=== PATIENT | female | born 1995 | race Caucasian/White ===

== ENCOUNTER 2020-02-24 02:43 | Emergency (ER) | payer BC ==
[2020-02-24 03:13] LABS: Bilirubin Negative (Negative); Blood, Urine Large (Negative); Clarity Slightly Cloudy (Clear); Glucose, Urine (Dipstick) Negative (Negative); Ketone, Urine Negative (Negative); Leukocyte Negative (Negative); Nitrite Negative (Negative); Protein, Urine (Dipstick) Negative (Neg-Trace); Urobilinogen 0.2 mg/dL (Less than 2); pH, Urine 5.5 (5.0-9.0)
[2020-02-24 03:16] LABS: Specific Gravity, Urine Greater/Equal 1.030 (1.005-1.030)
[2020-02-24 03:19] LABS: Bacteria/HPF Rare-Few HPF (None Seen); RBC/HPF Greater than 50 HPF (0-3); WBC/HPF None Seen HPF (0-3)
[2020-02-24] MEDS ORDERED: Morphine 4 MG/ML VIAL ONE ×2 (03:30→03:55)
[2020-02-24] MEDS ORDERED: Ondansetron PF 4 MG/2 ML Vial ONE ×2 (03:31→03:55)
[2020-02-24] MEDS ORDERED: Sodium Chloride 0.9% 1,000 ML ONE (03:31)
[2020-02-24 03:34] LABS: #Basophils 0.1 thou/uL (0.0-0.2); #Eosinphils 0.1 thou/uL (0.0-0.7); #Lymphocytes 3.2 thou/uL (1.20-3.40); #Monocytes 0.6 thou/uL (0.11-0.59); #Neutrophils 5.1 thou/uL (1.40-6.50); %Basophils 1.1 % (0.0-1.0); %Eosinophils 1.2 % (0.0-10.0); %Lymphocytes 35.3 % (21.0-51.0); %Monocytes 6.5 % (0.0-10.0); %Neutrophils 55.9 % (42.0-75.0); Hemoglobin 13.8 g/dL (12.0-16.0); Mean Corpuscular HGB CONC 32.3 g/dL (32.0-36.0); Mean Corpuscular Hemoglobin 29.2 pg (27.0-31.0); Mean Corpuscular Volume 90.3 fL (78.0-98.0); Platelet Count 344 thou/uL (130-400); RBC Distribution Width 10.9 % (11.5-14.5); Red Blood Cell (RBC) Count 4.74 mill/uL (4.20-5.40); White Blood Cell (WBC) Count 9.2 thou/uL (4.8-10.8)
[2020-02-24 03:43] LABS: BHCG - Serum Negative (NEGATIVE); Pregs Control Background? CLEAR/WHITE (CLR/WHITE); Pregs Control Bar Appear? YES (CONTROL BAR)
[2020-02-24 03:45] LABS: ALT (SGPT) 26 U/L (8-55); AST (SGOT) 17 U/L (5-34); Albumin 4.3 g/dL (3.5-5.0); Alkaline Phosphatase 111 U/L (40-110); Anion Gap 18 mmol/L (10-20); BUN (Urea Nitrogen) 12 mg/dL (7.0-18.7); Bilirubin, Total 0.2 mg/dL (0.2-1.2); Calc. Creatinine Clearance 0 mL/min (70-130); Calcium 8.9 mg/dL (7.8-10.44); Carbon Dioxide 23 mmol/L (22-29); Chloride 106 mmol/L (98-107); Globulin 2.8 g/dL (2.4-3.5); Glucose 125 mg/dL (70-105); Lipase 12 U/L (8-78); Potassium 3.5 mmol/L (3.5-5.1); Protein, Total 7.1 g/dL (6.0-8.3); Sodium 143 mmol/L (136-145)
--- NOTE | 2020-02-24 07:42 | CT ---
PRELIMINARY REPORT/[facility]/EMERGENCY AFTER HOURS PROCEDURE: EXAM: CT Abdomen and Pelvis Without Intravenous Contrast CLINICAL HISTORY: ER PATIENT; FLANK PAIN; HEMATURIA; STONE PROTOCOL. TECHNIQUE: Axial computed tomography images of the abdomen and pelvis without intravenous contrast. CONTRAST: None. COMPARISON: None provided. FINDINGS: No acute abnormalities at the lung bases. Liver, spleen, pancreas, and kidneys grossly unremarkable for acute disease on this limited noncontra st study. There is some slight prominence of the collecting system on the left compared to the right but again no renal or ureteral stones are seen. Patient may have recently pass the stone on th e left. Correlation specifically for LEFT flank pain. Adrenals are symmetric. No periaortic adenopathy. Evaluation of the GI tract is limited due to lack of contrast and limited distention of the GI tract. No obvious, acute GI abnormalities are identified. Normal appendix not clearly identified but no specific CT indications of acute appendicitis. No free fluid, fluid collections, or free air. No acute bony abnormalities. IMPRESSION: No acute intra-abdominal or pelvic abnormality. Possibly a recently passed stone on the left. ELECTRONICALLY SIGNED BY: Carlos Thomas MD Feb 24, 2020 4:30:29 AM TRANSPLANT NURSE This report is intended for review by the ordering physician only, in accordance of law. If you recei ve this report in error, please call [facility] at [phone]. FINAL REPORT: ABDOMEN CT WITHOUT CONTRAST PELVIC CT WITHOUT CONTRAST: HISTORY: Hematuria. Bilateral flank pain. COMPARISON: None. FINDINGS: Abdomen CT: Lung bases:Clear. Heart size: Normal size. Aorta: Normal caliber. Solid organs: Limited evaluation by technique. Grossly no abnormality. Lymph nodes: No gastrohepatic, retrocrural or periportal lymphadenopathy. Gallbladder: Unremarkable. Mesentery: No mass, lymphadenopathy, free air or free fluid. Kidneys: Bilaterally, no hydronephrosis, nephrolithiasis or perinephric fat stranding. Slight asymmet rically prominent left ureter. No evidence of a ureteral calculus. Alimentary canal: Limited evaluation due to technique. No evidence of a bowel obstruction. Appendix i s not appreciated. No secondary signs of appendicitis at the cecal apex.. CT PELVIS: No mass, adenopathy, free air or free fluid. Grossly unremarkable. Urinary bladder: Unremarkable. Osseous structures: No lytic or blastic lesions. IMPRESSION: 1. This report is in agreement with initial report by [facility] 2. No evidence of obstructive uropathy. Minimal asymmetric prominence of the left ureter with respec t to the contralateral side. Correlate for recent passage of calculus. Transcribed Date/Time: 02/24/2020 8:21 AM
--- NOTE | 2020-02-24 08:12 | ULT ---
PRELIMINARY REPORT/[facility]/EMERGENCY AFTER HOURS PROCEDURE: EXAM: US Pelvis, Complete. CLINICAL HISTORY: ER PATIENT; STONE PROTOCOL DONE EARLIER; ACUTE LEFT SIDE PAIN THAT STARTED THIS MORNING; ZERO BCP; SH E IS HAVING FERTILITY TREATMENTS/ISSUES FOR THE LAST 2 YEARS. TECHNIQUE: Transvaginal and transabdominal pelvic ultrasound (complete) with image documentation. COMPARISON: CT\SR - CT STONE PROTOCOL - 02/24/2020 04:08 AM ARMHO[facility] SEWER FINDINGS: ENDOMETRIUM: Normal thickness. UTERUS/CERVIX: Normal size and contour. No fibroid detected. Measures 7.3 x 4.3 x 3.0 cm and demonstrates nabothian cysts RIGHT OVARY: Normal follicles. No adnexal mass. Normal blood flow. Measures 3.7 x 2.1 x 2.1 cm LEFT OVARY: Normal follicles. No adnexal mass. Normal blood flow. Measures 4.8 x 1.4 x 1.7 cm FREE FLUID: No free fluid. IMPRESSION: Unremarkable pelvic ultrasound. Specifically, there is no evidence for torsion ELECTRONICALLY SIGNED BY: Sen Phillips MD Feb 24, 2020 6:41:50 AM [facility] SEW[facility] This report is intended for review by the ordering physician only, in accordance of law. If you recei ve this report in error, please call [facility] at [phone]. FINAL REPORT EMERGENCY AFTER HOURS PELVIC ULTRASOUND: I agree with the preliminary report provided by [facility]. No definite acute abnormality is evident. The uterus appears within normal limits. Multiple nabothian cysts. Ovaries demonstrate normal morphol ogical appearance and blood flow with multiple scattered follicles, none greater than 1.0 cm in size. No free fluid is evident. POS: [facility]IFF
[2020-02-25 21:40] LABS: Chlam.trachomatis by PCR,Urine Not Detected (NotDetected)
== END 2020-02-24 08:20 | disposition home or self-care (01) ==
LOC: MADERS 02:43
DX: M54.5 Low back pain (principal); R10.9 Unspecified abdominal pain; R10.812 Left upper quadrant abdominal tenderness; R10.814 Left lower quadrant abdominal tenderness; R11.2 Nausea with vomiting, unspecified; Z79.899 Other long term (current) drug therapy
CPT/HCPCS: 74176; 76856; 80053; 81003; 81015; 83690; 84703; 85025; 87491; 87591; 96374; 96375; J2270; J2405; J7050

== ENCOUNTER 2020-10-10 18:22 | Emergency (ER) | payer BC ==
[~2020-10-10 18:22] MED LIST: Iopamidol 370 76% 100 ML VIAL ONE
[2020-10-10] MEDS ORDERED: Ondansetron PF 4 MG/2 ML Vial ONE (18:54)
[2020-10-10] MEDS ORDERED: Morphine 4 MG/ML VIAL ONE (18:54)
[2020-10-10] MEDS ORDERED: Ketorolac Tromethamine 30 MG/ML VIAL ONE (18:54)
[2020-10-10 19:04] LABS: #Basophils 0.1 thou/uL (0.0-0.2); #Lymphocytes 1.1 thou/uL (1.20-3.40); #Monocytes 0.5 thou/uL (0.11-0.59); #Neutrophils 14.6 thou/uL (1.40-6.50); %Basophils 0.4 % (0.0-1.0); %Eosinophils 0.1 % (0.0-10.0); %Lymphocytes 6.6 % (21.0-51.0); %Monocytes 3.1 % (0.0-10.0); %Neutrophils 89.8 % (42.0-75.0); Hemoglobin 14.3 g/dL (12.0-16.0); Mean Corpuscular HGB CONC 32.1 g/dL (32.0-36.0); Mean Corpuscular Hemoglobin 29.6 pg (27.0-31.0); Mean Corpuscular Volume 92.2 fL (78.0-98.0); Mean Platelet Volume 6.3 fL (7.4-10.4); Platelet Count 377 thou/uL (130-400); RBC Distribution Width 11.1 % (11.5-14.5); Red Blood Cell (RBC) Count 4.82 mill/uL (4.20-5.40); White Blood Cell (WBC) Count 16.3 thou/uL (4.8-10.8)
[2020-10-10 19:19] LABS: ALT (SGPT) 29 U/L (8-55); AST (SGOT) 21 U/L (5-34); Albumin 4.3 g/dL (3.5-5.0); Alkaline Phosphatase 95 U/L (40-110); Anion Gap 17 mmol/L (10-20); BUN (Urea Nitrogen) 14 mg/dL (7.0-18.7); Bilirubin, Total 0.4 mg/dL (0.2-1.2); Calc. Creatinine Clearance 0 mL/min (70-130); Calcium 9.3 mg/dL (7.8-10.44); Carbon Dioxide 21 mmol/L (22-29); Chloride 106 mmol/L (98-107); Globulin 2.8 g/dL (2.4-3.5); Glucose 141 mg/dL (70-105); Lipase 12 U/L (8-78); Potassium 4.2 mmol/L (3.5-5.1); Protein, Total 7.1 g/dL (6.0-8.3); Sodium 140 mmol/L (136-145)
[2020-10-10 19:27] LABS: BHCG - Serum Negative (NEGATIVE); Pregs Control Background? CLEAR/WHITE (CLR/WHITE); Pregs Control Bar Appear? YES (CONTROL BAR)
[2020-10-10] MEDS ORDERED: Fentanyl 100 MCG/2 ML VIAL ONE (19:29)
[2020-10-10 21:25] LABS: Bilirubin Negative (Negative); Blood, Urine Moderate (Negative); Clarity Clear (Clear); Glucose, Urine (Dipstick) Negative (Negative); Ketone, Urine 15 mg/dL (Negative); Leukocyte Negative (Negative); Nitrite Negative (Negative); Protein, Urine (Dipstick) Negative (Neg-Trace); Urobilinogen 0.2 mg/dL (Less than 2); pH, Urine 5.5 (5.0-9.0)
[2020-10-10 21:32] LABS: WBC/HPF 0-3 HPF (0-3)
[2020-10-10 21:42] LABS: Lactic Acid 1.4 mmol/L (0.5-2.2)
[2020-10-13 21:26] LABS: Chlamydia by PCR Not Detected (NotDetected); GC by PCR Not Detected (NotDetected)
== END 2020-10-10 21:58 | disposition short-term general hospital (02) ==
LOC: MADERS 18:22
DX: N20.1 Calculus of ureter (principal); N83.202 Unspecified ovarian cyst, left side; Z79.84 Long term (current) use of oral hypoglycemic drugs
CPT/HCPCS: 74177; 80053; 81003; 81015; 83605; 83690; 84703; 85025; 87480; 87491; 87510; 87591; 87660; 96374; 96375; 96376; J1885; J2270; J2405; J3010; Q9967